=== PATIENT | male | born 1965 | race Caucasian/White ===

== ENCOUNTER 2018-09-16 13:50 | Emergency (ER) | payer OTHER ==
--- NOTE | 2018-09-16 14:44 | EDPHY ---
H & P Stated Complaint: few days of intermittent left fa tingling . and today had dizziness Time Seen by Provider: 09/16/18 13:57 HPI/ROS: Chief Complaint: Arm numbness, dizziness HPI: 52-year-old male's complaining of tingling in his left arm for the last several days. Patient is describing the sensation is an entire left arm. Also had an episode of dizziness this afternoon. He has had that frequently in the spring time in the past and it resolved with Benadryl. Took a Benadryl today and resolved. He is not dropping any objects. No decrease since. No chest pain. No shortness of breath. He has been doing a lot of gardening and has been shoveling. He is right-handed. No lightheadedness or fainting. No palpitations. No nausea or vomiting. No headache. No hearing or vision changes. No leg symptoms. No trauma. ROS: 10 systems were reviewed and were negative except those elements noted in the HPI. PMH: Mitral valve prolapse Social History: No smoking, occasional alcohol, no recreational drug use Family History: Father of a glioblastoma at age 70 Physical Exam: Gen: Awake, Alert, No Distress HEENT: Nose: no rhinorrhea Eyes: PERRLA, EOMI Mouth: Moist mucosa Neck: Supple, no JVD Chest: nontender, lungs clear to auscultation Heart: S1, S2 normal, no murmur Abd: Soft, non-tender, no guarding Back: no CVA tenderness, no midline tenderness Ext: no edema, non-tender Skin: no rash Neuro: CN II-XII intact, Sensation grossly intact, Strength 5/5 in bilateral upper and lower extremities. He has normal sharp and dull sensation. Normal 2 point discrimination. Normal strength in all flexors and extensors and of the upper extremity bilaterally. Normal finger-nose. Normal heel-hall. Negative Romberg. - Medical/Surgical History Hx Asthma: Yes Hx Chronic Respiratory Disease: No Hx Diabetes: No Hx Cardiac Disease: No Hx Renal Disease: No Other PMH: MVP. hernia. labrynthitis - Social History Smoking Status: Never smoked Constitutional: Initial Vital Signs Temperature (C) 36.7 C 09/16/18 14:11 Heart Rate 86 09/16/18 14:11 Respiratory Rate 12 09/16/18 14:11 Blood Pressure 147/84 H 09/16/18 14:11 O2 Sat (%) 96 09/16/18 14:11 Allergies/Adverse Reactions: corn Allergy (Verified 09/16/18 14:16) Home Medications: Medication Instructions Recorded Benadryl PRN 09/16/18 Medical Decision Making - Diagnostics EKG Interpretation: ECG time 2:05 p.m.. Sinus rhythm with a rate of 78, left anterior fascicular block. No acute ischemia. ED Course/Re-evaluation: 52-year-old healthy male presenting with paresthesias of his left arm. He is completely neurologically intact. These have come on over the last 2 days that he has been doing a lot of shoveling and guarding. I think he has an overuse syndrome. He has not have any focal neural deficits. No history suggestive acute CVA or intracranial injury. No findings suggestive of a spinal injury. It is possible that there could be some radiculopathy but I think is much more likely a nerve impingement syndrome. I do not feel imaging is indicated at this time. Plan will be to discharge the patient with follow-up with primary care physician. He can have nerve conduction studies and or MRI or imaging as an outpatient. Patient has been counseled as to this. He is completely agree with the plan. Will discharge with follow-up as an outpatient. ECG was obtained by nursing staff prior to my evaluation the patient. I do not feel there is any symptomatology that can be attributed to acute coronary syndrome. Departure - Departure Disposition: Home, Routine, Self-Care Clinical Impression: Paresthesias Condition: Good Instructions: Paresthesia (ED) Additional Instructions: My apply ice for 15 min of every hour while awake. You may take ibuprofen 600 mg every 8 hr for inflammation. Follow up with primary care physician in 4-5 days if symptoms are not improving. Return to the emergency department for increasing numbness, weakness, tingling, lightheadedness, fainting, or any other concerns. Referrals: Aspen Mix MD [Medical Doctor] - As per Instructions
[2018-09-16 15:12] VITALS: BP 140/82
--- NOTE | 2018-09-18 05:53 | CPEKG ---
Test Reason : OPEN Blood Pressure : / mmHG Vent. Rate : 078 BPM Atrial Rate : 078 BPM P-R Int : 166 ms QRS Dur : 093 ms QT Int : 367 ms P-R-T Axes : 074 -78 049 degrees QTc Int : 419 ms Sinus rhythm Probable left atrial enlargement Left anterior fascicular block Confirmed by Ramin George ([id number] on 09/18/2018 5:52:38 AM Referred By: Ramin George Confirmed By:Ramin George
== END 2018-09-16 14:55 | disposition home or self-care (01) ==
LOC: CED 13:50
DX: R20.2 Paresthesia of skin (principal)
CPT/HCPCS: 99283-ER